=== PATIENT | female | born 2005 | race Two or more races ===

== ENCOUNTER 2024-05-09 13:40 | Outpatient (AMB) | payer MEDICAID, SELFPAY ==
[2024-05-09 13:50] VITALS: BP 102/70; PULSE 74; RESP 16; TEMP 36.6; O2SAT 96; BMI 24.0
--- NOTE | 2024-05-09 13:50 | PD.RESCLINIC ---
Vital Signs 05/09/24 13:50 Height 5 ft 1.81 in Height Method Stated Weight 59.137 kg Weight Measurement Method Standing Scale BMI 24.0 BP 102/70 Blood Pressure Source Automatic Cuff Blood Pressure Location Left Upper Arm Position Sitting Respiration 16 Pulse 74 Pulse Source Monitor Temp 97.8 F Temp Source Temporal Artery Scan Pulse Oximetry (%) 96 Oxygen Delivery Method Room Air Allergies/Meds Allergies & Medications Allergies No Known Allergies Allergy (Mild, Uncoded 05/09/24 13:51) OTHER Medication Reconciliation No Known Home Medications 11/02/23 [History Confirmed 05/09/24] MA Intake Visit Data Collection New Patient or Established: Established Patient (seen at [facility] within 3 years) Seen by Clinical Staff ONLY (RN/MA): No Pain Present Currently: No Pain scale:: 0 Pain Scale Used: [place]/Numerical Customer Service Attendant Required: No PCP or OBGYN visit in last 3 months: No Hx Now: No Do You Feel Safe at Home: Yes Authorities Contacted: N/A Smoking Status Smoking Status: Never smoker Immunization / Flu Flu Vaccine in the Last 12 Months: No Flu Vaccine Exclusion Criteria: No Exclusion Criteria Past Medical History Family History FAMILY HISTORY: Positive Family Cardiac Disorders (Hypertension in her father) Social History SMOKING STATUS: Smoking status: Never smoker Patient Portal Questionaires PHQ-9 PHQ-2 Over the last 2 weeks, how often have you been bothered by any of the following problems? 1. Little interest or pleasure in doing things: not at all Social History Tobacco History Smoking Status: Never smoker Domestic Abuse History Do You Feel Safe at Home: Yes Review of Systems Report any current symptoms Only answer those that you have currently: Past Medical History Past Medical History Have you ever been diagnosed with any of the following: History of Present Illness HPI Narrative Patient is a healthy 18 year old female with no known PMH who presents to the ER for physical evaluation and health clearance at the [facility]. She does not have any current acute complaints. She is not on any medications. Review of Systems Review of Systems Systems Reviewed: All systems reviewed, normal except as documented Objective/Exam Narrative Physical exam: Constitutional: NAD. Well-appearing, well-nourished HEENT: NCAT. Vision grossly intact. Mucous membranes moist. Respiratory: No respiratory distress. Non-tachypneic. Cardiac: Non-tachycardic Abdomen: Non-distended. MSK: No B/L LE edema. Skin: Warm, dry, intact. No obvious lesions. Neuro: Motor and sensation grossly intact. Normal gait. Psychiatric: Appropriate mood and affect. Assessment & Plan Diagnosis / Problem List (1) Adult wellness visit: Status: Acute Assessment & Plan: Completed documents for [employer] Needs blood type Plan: - Lab work for blood type ordered, bring copy to her school Orders: Orders ABO/RH Type Today Z00.00 - Encounter for general adult medical examination without abnormal findings Office Procedures [facility] Level of Care Nursing/Assessment Patient Status: Established Patient Nursing Assessment/Reassessment: Medication Reconciliation, Update PMH in EMR and Vital Signs Coordination of Care: Complex Care and Chronic Disease 1-5, Consent,records obtained, informed consent, Education Simp Pt/Fam, Lab and Imaging orders and Staff clarify orders Established Patient Charge Established Patient Point Assignment: 100 Established Patient Point Charge: Level 3 (80-115)
== END 2024-05-09 13:54 | disposition home or self-care (01) ==
LOC: HODAHC 13:40
PROVIDERS: Supervising Provider Internal Medicine; Visit Provider Student in an Organized Health Care Education/Training Program
DX: Z00.00 Encounter for general adult medical examination without abnormal findings (principal)
CPT/HCPCS: 99213; G0463